=== PATIENT | female | born 1970 | race Caucasian/White ===

== ENCOUNTER 2018-07-13 10:41 | Outpatient (CLI) | payer BC | END 2018-07-13 10:42 | disposition home or self-care (01) | LOC: BICRAD 10:41 | PROVIDERS: ATTEND Internal Medicine Rheumatology | DX: M25.561 Pain in right knee (principal) ==

== ENCOUNTER 2018-07-20 08:39 | Outpatient (CLI) | payer BC ==
--- NOTE | 2018-07-20 11:13 | MRI ---
MRI OF THE RIGHT KNEE WITHOUT CONTRAST: Date: 07/20/18 INDICATION: Right knee pain. COMPARISON: None. FINDINGS: No joint effusion is evident. No popliteal cyst is identified. There is a 1.0 mm partial thickness articular cartilage fissure involving the lateral patellar facet, image 12 of series 5, where this involves 50% of the articular cartilage thickness. There is mild ch ondrosis involving the medial patellar facet on image 12 of series 5. Mild chondrosis seen involving the central trochlea on image 17 of series 5. No full thickness articular cartilage defect is seen in volving the femorotibial compartments. The medial and lateral menisci are intact. The ACL, PCL, MCL, and LCLC are intact. The extensor mechanism is intact. IMPRESSION: Mild chondrosis involving the patellofemoral compartment. There is a partial thickness articular cart ilage fissure involving the lateral patellar facet with mild chondrosis involving the medial patellar facet and central trochlea. POS: [facility]
== END 2018-07-20 08:40 | disposition home or self-care (01) ==
LOC: TBSIIMAG 08:39
PROVIDERS: ATTEND Internal Medicine Rheumatology
DX: M25.561 Pain in right knee (principal); M22.2X1 Patellofemoral disorders, right knee

== ENCOUNTER 2020-08-16 08:20 | Outpatient (CLI) | payer BC ==
--- NOTE | 2020-08-16 09:06 | BD ---
EXAM: DEXA bone density examination HISTORY: 50-year-old postmenopausal female for screening COMPARISON: None FINDINGS: L1--bone mineral density 1.225 g/sq cm; T score 2.1 L2--bone mineral density 1.350 g/sq cm; T score 1.9 L3--bone mineral density 1.255 g/sq cm; T score 1.6 L4--bone mineral density 1.419 g/sq cm; T score 3.3 Total L1-L4--bone mineral density 1.316 g/sq cm; T score 2.4 Left femoral neck--bone mineral density0.894; T score 0.4 Total proximal left femur--bone mineral density 1.240; T score 2.4 IMPRESSION: Normal bone density. This patient has a 10 year WHO fracture risk of a major osteoporotic fracture of 4.5% and of a hip fracture of 0.1%.
== END 2020-08-16 08:21 | disposition home or self-care (01) ==
LOC: BICMAMMO 08:20
PROVIDERS: ATTEND Internal Medicine Rheumatology
DX: M81.0 Age-related osteoporosis without current pathological fracture (principal)
CPT/HCPCS: 77080

== ENCOUNTER 2021-08-28 14:46 | Outpatient (CLI) | payer BC | END 2021-08-28 14:47 | disposition home or self-care (01) | LOC: BICULT 14:46 | PROVIDERS: ATTEND Family Medicine | DX: E04.2 Nontoxic multinodular goiter (principal) | CPT/HCPCS: 76536 ==

== ENCOUNTER 2022-05-23 13:07 | Outpatient (CLI) | payer BC | END 2022-05-23 13:08 | disposition home or self-care (01) | LOC: LABBT 13:07 | PROVIDERS: ATTEND Otolaryngology Otolaryngic Allergy | DX: Z20.822 Contact with and (suspected) exposure to COVID-19 (principal) | CPT/HCPCS: 87811 ==

== ENCOUNTER 2022-05-26 12:40 | Outpatient (CLI) | payer BC | END 2022-05-26 12:41 | disposition home or self-care (01) | LOC: RAD 12:40 | PROVIDERS: ATTEND Otolaryngology Otolaryngic Allergy | DX: I69.191 Dysphagia following nontraumatic intracerebral hemorrhage (principal); R13.11 Dysphagia, oral phase; R13.12 Dysphagia, oropharyngeal phase; K21.9 Gastro-esophageal reflux disease without esophagitis | CPT/HCPCS: 74230 ==

== ENCOUNTER 2023-06-17 15:35 | Outpatient (CLI) | payer BC | END 2023-06-17 15:36 | disposition home or self-care (01) | LOC: ULT 15:35 | PROVIDERS: ATTEND Otolaryngology Otolaryngic Allergy | DX: E04.2 Nontoxic multinodular goiter (principal) | CPT/HCPCS: 76536 ==

== ENCOUNTER 2024-08-03 07:22 | Outpatient (CLI) | payer BC | END 2024-08-03 07:23 | disposition home or self-care (01) | LOC: BICULT 07:22 | PROVIDERS: ATTEND Otolaryngology Otolaryngic Allergy | DX: E04.1 Nontoxic single thyroid nodule (principal) | CPT/HCPCS: 76536 ==